=== PATIENT | female | born 1975 | race Caucasian/White ===

== ENCOUNTER 2024-11-19 01:49 | Emergency (ER) | payer MEDICAID, OTHER ==
[~2024-11-19] VITALS: Ht 162.6 cm; Wt 118.2 kg
[2024-11-19 01:56] VITALS: BP 137/77; PULSE 102; RESP 20; TEMP 98.2; O2SAT 100
== END 2024-11-19 03:41 | disposition left against medical advice (07) ==
LOC: EMS 02:01
DX: F41.9 Anxiety disorder, unspecified (principal); Z53.21 Procedure and treatment not carried out due to patient leaving prior to being seen by health care provider

== ENCOUNTER 2025-02-19 22:19 | Emergency (ER) | payer OTHER ==
[~2025-02-19] VITALS: Ht 160 cm; Wt 91.8 kg
[2025-02-19 22:22] VITALS: TEMP 97.3
[2025-02-19] MEDS: SODIUM CHLORIDE 0.9% 1,000 ML IV ONE (23:13)
[2025-02-19 23:16] LABS: PLATELET COUNT (AUTO) 375 K/uL (150-450); RED BLOOD CELL COUNT(AUTO) 3.89 MIL/uL (4.00-5.20); RED CELL DISTRIBUTION WIDTH 17.3 % (11.5-14.5); WHITE BLOOD COUNT (AUTO) 10.0 K/uL (4.5-11.0)
[2025-02-19] MEDS: EPINEPHrine 1:1,000 [1 MG/ML] VIAL IM ONE (23:16)
[2025-02-19 23:28] LABS: CALCIUM, TOTAL 8.8 mg/dL (8.8-10.5); CREATININE 0.53 mg/dL (0.60-1.30); GLOMERULAR FILTR. RATE CALC > 60 mL/min (>60); GLUCOSE,RANDOM 120 mg/dL (70-110); SODIUM SERUM 142 mmol/L (136-145); UREA NITROGEN, BLOOD 17 mg/dL (7-18)
[2025-02-19 23:37] LABS: TROPONIN I-HIGH SENSITIVITY 33 ng/L (<51)
[2025-02-20 02:35] VITALS: BP 136/74; PULSE 84; RESP 20; O2SAT 100
[2025-02-20] MEDS ORDERED: PRED-554 PO (02:41)
[2025-02-20] MEDS ORDERED: DIPH25CA85 PO (02:43)
== END 2025-02-20 02:55 | disposition home or self-care (01) ==
LOC: EMS 22:54
DX: T78.09XA Anaphylactic reaction due to other food products, initial encounter (principal); L29.9 Pruritus, unspecified; Z59.00 Homelessness unspecified; Y92.89 Other specified places as the place of occurrence of the external cause
CPT/HCPCS: 99285; 96374; 96361; 71045; 96375; 80048; 83880; 84484; 85025; 36415; 93005; J2919; G0480; J1200; J0169; J7030